=== PATIENT | female | born 1995 | race Caucasian/White ===

== ENCOUNTER 2022-04-07 07:49 | Outpatient (CLI) | payer MEDICAID ==
[~2022-04-07] VITALS: Ht 165.1 cm; Wt 97.3 kg
[~2022-04-07 07:49] MED LIST: IBU800 M1 PO; PERCOCET 325 MG1 TA2 PO; PRENATAL FORMU1 EAC3 PO; TYLENOL PM EXTR1 TA1 PO
[2022-04-07 08:15] VITALS: BP 122/73; PULSE 100; TEMP 97.7
--- NOTE | 2022-04-07 08:15 | NUR ---
0800- Pt arrives on unit ambulatory with conplaints of cramping overnight and losing her mucous plug around 0400. EFM and TOCO on and tracing well. VSS. O2 sat monitor on and tracing maternal HR. Assessments completed. Pt denies VB, LOF, regular contractions. +FM but states it seems less than normal. POC discussed and PT denies questions at this time.
--- NOTE | 2022-04-07 08:36 | NUR ---
0836- [facility] and TOCO off. Pt up to ambulate in hallway.
[2022-04-07 09:44] VITALS: BP 104/59; PULSE 96
--- NOTE | 2022-04-07 09:44 | NUR ---
0944- EFM and TOCO off. Labor precautions explained. Pt denies questions. Discharge paperwork given and explained. Pt up to change into street clothes. 0950- Ambulates off unit in stable condition.
== END 2022-04-07 09:50 | disposition home or self-care (01) ==
LOC: LDRO 07:49
DX: O62.9 Abnormality of forces of labor, unspecified (principal); Z3A.41 41 weeks gestation of pregnancy

== ENCOUNTER 2022-04-12 06:51 | Inpatient (IN) | payer MEDICAID ==
[~2022-04-12] VITALS: Ht 167.6 cm; Wt 97.3 kg
[2022-04-13] VITALS (46 sets, daily range): BP systolic 92–141; BP diastolic 50–82; PULSE 74–133; TEMP 97.7–99
[2022-04-13 06:51] LABS: BASO % 0.3 % (0.0-2.0); EOS # 0.2 K/mm3 (0.0-0.7); EOS % 3.3 % (0.0-4.0); GRAN # 4.7 K/mm3 (1.4-6.5); GRAN % 64.6 % (42.2-75.2); HEMOGLOBIN 11.1 g/dl (12.5-16.0); LYMPH % 27.1 % (20.0-51.0); MEAN CELL VOLUME 90 fl (80.0-100.0); MEAN CORPUSCULAR HEMOGLOBIN 31 pg (27-31); MEAN CORPUSCULAR HGB CONC 34 g/dl (33.0-37.0); MEAN PLATELET VOLUME 9.4 fl (7.4-10.4); MONO # 0.3 K/mm3 (0.1-0.6); MONO % 4.3 % (1.7-9.3); PLATELET COUNT 264 K/mm3 (130-400); RED BLOOD COUNT 3.62 M/mm3 (4.10-5.30); REDCELL DISTRIBUTION WIDTH-CV 13.3 % (11.5-14.5)
[2022-04-13 06:52] LABS: HEMATOCRIT 32.5 % (37.0-47.0)
[2022-04-13 15:30] LABS: TRICYCLIC ANTIDEPRESS URINE NEGATIVE
--- NOTE | 2022-04-13 16:41 | NUR ---
1111 PATIENT SAT UP FOR EPIDURL.DIFFICULT TO TRACE BABY. PULSE OX PLACED ON MOM. 1115 ANESTHESIA AT THE BEDSIDE. 1119 TIMEOUT AND PROCEDURE START. 1131 TEST DOSE COMPLETED. 1139 PATIENT LAID BACK AND PLACED BACK ON MONITOR. 1205 MD AT BEDSIDE. 1206 PATIENT NICE ANND COMFORTABLE. SOME VARIBLES NOTED. MD AND RN AT BEDSIDE REVIEWING STRIP. MD HEWITT /-2 NO NEW ORDERS AT THIS TIME. NO NEW NEEDS. CALL BRADY AND BELONGINGS AT THE BEDSIDE.
--- NOTE | 2022-04-13 19:30 | NUR ---
1654 PATIENT STATED SHE IS FEELING MORE CONSTANT PRESSURE IN HER BOTTOM. MD AT BEDSIDE. 165 LUNA REMOVED WITH 400 CC OF URINE. 165 SVE 10/100/0. MD STATED PATIENT AND NURSE WILL PRACTICE PUSH. PATIENT PUSHING WELL 173 MD BACK AT BEDSIDE. PATINET SET UP FOR DELIVERY. 175 DELIVERY OF HEAD. 175 REMAINDER OF DELIVERED. VIABLE BABY GIRL. PLACED ON MOTHER'S CHEST. 175 DELIVERY OF PLACENTA. BOLUS OF PITOCIN STARTED. NO TEARS OR LACERACTIONS. PATIENT CLEANED OFF AND BED BACK TOGETHER.
[2022-04-14 03:45] VITALS: BP 110/64; PULSE 86; TEMP 98.2
[2022-04-14] MEDS ORDERED: MOTRIN 800800 MG/TAB PO (08:13)
[2022-04-14 08:40] VITALS: BP 119/69; PULSE 104; TEMP 98
--- NOTE | 2022-04-14 09:50 | NUR ---
Initial visit; Parents thanked Early Childhood Education Coordinator for offering congratulations and God's blessings for the of their daughter. Early Childhood Education Coordinator thanked family for choosing [facility].
[2022-04-14 16:15] VITALS: BP 121/68; PULSE 97; TEMP 97.8
--- NOTE | 2022-04-14 19:10 | NUR ---
1909 DISMISSAL INSTRUCTIONS GIVEN AND QUESTIONS ANSWERED. 1924 DISMISSED PER AMB TO HOME ACC BY , BABY AND AUDIO VISUAL ARTS DIRECTOR
== END 2022-04-14 19:25 | disposition home or self-care (01) | DRG 807 ==
LOC: OB 04-13 05:30 → LDR 04-13 05:30 → OB 04-13 21:00
PROVIDERS: Obstetrics & Gynecology; ADMIT Obstetrics & Gynecology
PROC: 10E0XZZ Delivery of Products of Conception, External Approach (ICD-10-PCS; principal; 2022-04-13)
PROC: 10907ZC Drainage of Amniotic Fluid, Therapeutic from Products of Conception, Via Natural or Artificial Opening (ICD-10-PCS; 2022-04-13)
PROC: 3E033VJ Introduction of Other Hormone into Peripheral Vein, Percutaneous Approach (ICD-10-PCS; 2022-04-13)
DX: O99.824 Streptococcus B carrier state complicating childbirth (principal); Z37.0 Single live birth; Z3A.39 39 weeks gestation of pregnancy; Z86.16 Personal history of COVID-19
CPT/HCPCS: J2405; J2540; J2590; J7120